=== PATIENT | female | born 1955 | race Caucasian/White ===

== ENCOUNTER 2022-01-15 16:47 | Emergency (ER) | payer MEDICARE, BC, SELFPAY ==
--- NOTE | 2022-01-15 16:59 | ED.SKABFB ---
HPI - Skin/Abscess/Foreign Bdy General Chief complaint: Skin/Abscess/Foreign Body Stated complaint: Swollen Finger Time Seen by Provider: 01/15/22 16:59 Source: patient Mode of arrival: ambulatory Limitations: no limitations History of Present Illness HPI narrative: 66 y/o female presented for c/o right index finger swelling today. States she woke with the swollen finger and denies injury, repetitive use or insect involvement. Endorses decreased ROM and tenderness, denies itching, drainage, or open wounds. She was at the hospital for her mother's surgery today and did not take anything [employer]. Pt is right hand dominant. MD complaint: rash Related Data Home Medications Medication Instructions Recorded Confirmed aspirin 81 mg tablet,delayed 81 mg PO DAILY 06/30/19 01/15/22 release (Adult Low Dose Aspirin) multivitamin (Daily Multi-Vitamin 1 tablet PO DAILY 06/30/19 01/15/22 tablet) omega-3 fatty acids 1,000 mg 1,000 mg PO DAILY 06/30/19 01/15/22 capsule (Fish Oil Concentrate) cholecalciferol (vitamin D3) 50 4,000 unit PO DAILY 06/15/20 01/15/22 mcg (2,000 unit) tablet vit C 250 mg-E 90 mg-zinc 40 1 tablet PO QAM AND QPM 07/04/21 01/15/22 mg-copper 1 [id number] chew tablet (PreserVision AREDS-2) Allergies Allergy/AdvReac Type Severity Reaction Status Date / Time iodine Allergy Unknown RASH Verified 01/04/22 14:30 Penicillins Allergy Unknown Unknown Verified 01/04/22 14:30 povidone-iodine Allergy Unknown RASH Verified 01/04/22 14:30 Review of Systems Review of Systems: CONSTITUTIONAL: Denies body aches, fever, chills, or sweats. EYES: Denies visual changes, redness, or discharge. ENT: Denies rhinorrhea, congestion, sore throat, or otalgia. CARDIOVASCULAR: Denies chest pain, palpitations, or edema. RESPIRATORY: Denies cough or dyspnea. GASTROINTESTINAL: Denies abdominal pain, nausea, vomiting, or diarrhea. GENITOURINARY: Denies dysuria or hematuria. SKIN: denies rash, itching, wounds. MUSCULOSKELETAL:reports right finger swelling NEUROLOGIC: Denies headache, numbness, tingling, or weakness. PSYCH: Denies depression or anxiety. [facility] Past Medical History Medical History Endometrial cancer Essential (primary) hypertension Hyperlipidemia, unspecified Hypertension Personal history of malignant neoplasm of other parts of uterus Post-menopausal Screening for colon cancer Screening for thyroid disorder Screening mammogram, encounter for Vitamin D deficiency, unspecified Surgical History Surgical History Bone marrow donor H/O total hysterectomy History of plastic surgery face S/P knee surgery Family History Family History Mother Hypertension Sibling Hypertension Family history of malignant neoplasm, Onset Age: 32 Patient's sister is in good health Father Carcinoma of colon, Onset Age: 72 Family history of diabetes mellitus in first degree relative Family history of coronary artery disease Patient's father is Grandparent Family history of coronary artery disease Diabetes mellitus Social History Social History Smoking status: Never smoker Second hand tobacco smoke exposure: No Alcohol intake: never Substance use: never Substance use type: does not use Comments At time of signature, I have reviewed and agree with nursing past medical, surgical, social and family history unless otherwise noted. Please see nursing chart for further information. There is no relevant family history pertinent to the presenting complaint Exam Narrative: GENERAL: Well-appearing EYES: conjunctivae clear, and EOMI. ENT: Mucous membranes moist. Oropharynx without edema, erythema or lesions. CHEST: Clear to auscultation. No respiratory distress. HEART
[2022-01-15 17:00] VITALS: BP 154/84; PULSE 89; RESP 18; TEMP 36.6; O2SAT 100
[2022-01-15] MEDS: methylPREDNISolone ACETATE 80 MG/ML VIAL IM (17:14)
== END 2022-01-15 17:49 | disposition home or self-care (01) ==
PROVIDERS: Emergency Provider Nurse Practitioner Family; PCP Internal Medicine
DX: M25.441 Effusion, right hand (principal); I10 Essential (primary) hypertension; E78.5 Hyperlipidemia, unspecified; E55.9 Vitamin D deficiency, unspecified; Z85.42 Personal history of malignant neoplasm of other parts of uterus; Z90.710 Acquired absence of both cervix and uterus; Z79.82 Long term (current) use of aspirin
CPT/HCPCS: 96372; 99213; G0463; J1040

== ENCOUNTER 2022-10-09 13:50 | Outpatient (CLI) | payer MEDICARE, BC, SELFPAY ==
--- NOTE | ~2022-10-09 | DEXA_ITS ---
Bone Density Report Name: ALEJO GIVENS Age: 67 Sex: Female Ethnicity: White Date of : 1955 Indication: postmenopausal; screening for osteoporosis; cancer; hysterectomy; Referring Provider: KAN LOPEZ Study: Bone densitometry was performed. Exam Date: October 09, 2022 Accession number: [id number] Bone Density: Region BMD T-score Z-score Classification AP Spine(L1-L4) 1.079 0.3 2.1 Normal Femoral Neck (Left) 0.874 0.2 1.8 Normal Total Hip (Left) 0.941 0.0 1.3 Normal Femoral Neck (Right) 0.818 -0.3 1.3 Normal Total Hip (Right) 0.879 -0.5 0.8 Normal Total Hip Mean 0.910 -0.3 1.1 Normal World Health Organization criteria for BMD impression classify patients as: Normal (T-score at or above -1.0), Osteopenia (T-score between -1.0 and -2.5), or Osteoporosis (T-score at or below -2.5). 10-year Fracture Risk: FRAX not reported because: All T-scores for Spine Total, Hip Total, Femoral Neck at or above -1.0 Previous Exams: Region Exam Age BMD T-score BMD Change BMD Change Date g/cm2 vs Baseline vs Previous AP Spine (L1-L4) 10/09/2022 67 1.079 0.3 -0.024 (-2.2%) 0.014 (1.3%) 07/07/2019 63 1.065 0.2 -0.038 (-3.5%) -0.038 (-3.5%) 07/04/2017 61 1.103 0.5 Total Hip(Left) 10/09/2022 67 0.941 0.0 -0.013 (-1.4%) -0.054 (-5.4%) 07/07/2019 63 0.994 0.4 0.041 (4.2%)* 0.041 (4.2%)* 07/04/2017 61 0.954 0.1 Total Hip(Right) 10/09/2022 67 0.879 -0.5 -0.073 (-7.6%) -0.093 (-9.6%) 07/07/2019 63 0.972 0.2 0.020 (2.1%) 0.020 (2.1%) 07/04/2017 61 0.952 0.1 *Denotes significance at 95% confidence level, LSC for AP Spine = 0.022 g/cm2, LSC for Total Hip = 0.027 g/cm2 Clinical Information Provided by Patient: Has used the following medications: Vitamin D, Calcium Has the following medical conditions: Cancer, Hysterectomy Patient maximum height was 65 Menopause Age: 52 Onset of menses at age 11 Number of children 0 Impression: The patient has normal bone mass. The BMD for the Total Hip(Left) decreased, changing by -5.4% since the last DXA exam. The BMD for the Total Hip(Right) decreased, changing by -9.6% since the last DXA exam. Discussion: BONE DENSITY IS ABOVE THE MINIMUM DESIRABLE LEVEL AT ALL SKELETAL SITES TESTED. This patient?s bone mineral density is above the minimum desirable level (T-score -1.0 or better) at all sites measured. The patient should follow a healthful life
== END 2022-10-09 13:51 | disposition home or self-care (01) ==
LOC: ANHIMG 13:51
PROVIDERS: PCP Internal Medicine; Visit Provider Obstetrics & Gynecology
DX: Z78.0 Asymptomatic menopausal state (principal)
CPT/HCPCS: 77080

== ENCOUNTER 2024-03-02 13:09 | Outpatient (CLI) | payer MEDICARE, BC, SELFPAY ==
--- NOTE | ~2024-03-02 | US_ITS ---
EXAMINATION: US soft tissue LE LT DATE: 03/02/2024 13:25 INDICATION: Localized swelling, mass and lump, left lower limb. TECHNIQUE: Multiple grayscale and Doppler ultrasound images of the left lower limb were obtained. COMPARISON: None FINDINGS: In the left calf, there is hyperechoic subcutaneous fat with shadowing, consistent with inf lammation. The tech notes the skin appearance of bruising. There are patent varicose veins. IMPRESSION: 1. Inflammation/bruising of left calf. No abscess. 2. Varicose veins. Reviewed, dictated and finalized at location A.
== END 2024-03-02 13:10 ==
LOC: GOSHIMG 13:10
PROVIDERS: PCP Family Medicine; Visit Provider Family Medicine
DX: R22.42 Localized swelling, mass and lump, left lower limb (principal); I83.92 Asymptomatic varicose veins of left lower extremity
CPT/HCPCS: 76882

== ENCOUNTER 2025-04-13 10:57 | Emergency (ER) | payer MEDICARE, BC, SELFPAY ==
--- NOTE | 2025-04-13 11:03 | ED_ITS ---
HPI - Female Genitourinary General Chief complaint: Urogenital-Female Stated complaint: UTI Time Seen by Provider: 04/13/25 11:01 Source: patient Mode of arrival: ambulatory Limitations: no limitations History of Present Illness HPI Narrative: Patient is a 69-year-old female who presents with dark urine, urgency, frequency and burning since yesterday. Reports seen blood in urine. Denies any fever, chills, nausea, vomiting, diarrhea, suprapubic pain or low back pain. MD elicited complaint: dysuria Related Data Home Medications ?Medication ?Instructions ?Recorded ?Confirmed ?Last Taken ?Type aspirin 81 mg tablet,delayed 81 mg PO DAILY 06/30/19 0 12/28/24 Unknown History release (Adult Low Dose Aspirin) multivitamin (Daily Multi-Vitamin 1 tablet PO DAILY 12/28/24 Unknown History tablet) omega-3 fatty acids 1,000 mg 1,000 mg PO DAILY 9 12/28/24 Unknown History capsule (Fish Oil Concentrate) cholecalciferol (vitamin D3) 50 4,000 unit PO DAILY 12/28/24 Unknown History mcg (2,000 unit) tablet vit C 250 mg-E 90 mg-zinc 40 1 tablet PO QAM AND QPM 1 09/04/20 12/28/24 Unknown History mg-copper 1 [id number] chew tablet (PreserVision AREDS-2) calcium carbonate (Calcium 600) 600 mg PO DAILY 12/28/24 Unknown History Allergies Allergy/AdvReac Type Severity Reaction Status Date / Time iodine Allergy Unknown RASH Verified 04/13/25 11:20 Penicillins Allergy Unknown Unknown Verified 04/13/25 11:20 povidone-iodine Allergy Unknown RASH Verified 04/13/25 11:20 Review of Systems Review of Systems: All systems reviewed & are unremarkable except as noted in HPI and below Constitutional: Constitutional: Denies chills, Denies fever(s), Denies headache(s), Denies malaise and Denies weakness Eyes: Eyes: Denies change in vision, Denies eye discharge and Denies irritation ENT: Denies otalgia, Denies headache(s), Denies nasal congestion, Denies nasal discharge, Denies sinus pain and Denies sore throat Cardiovascular: Cardiovascular: Denies chest pain, Denies edema, Denies palpitations and Denies dyspnea Respiratory: Respiratory: Denies cough and Denies dyspnea Gastrointestinal: Gastrointestinal: Denies abdominal pain, Denies diarrhea, Denies nausea and Denies vomiting Genitourinary: Genitourinary: Reports hematuria, Reports nocturia, Reports dysuria, Denies flank pain and Reports urinary urgency Musculoskeletal: Musculoskeletal: Denies back pain and Denies numbness Integumentary/Breasts: Skin/Breast: Denies pruritus and Denies rash Neurologic: Denies headache(s), Denies numbness and Denies weakness Psychiatric: Psychiatric: Reports no additional psychiatric complaints Endocrine: Endocrine: Denies palpitations PMFSH Past Medical History Medical History Screening for colon cancer Screening for thyroid disorder Essential (primary) hypertension Hyperlipidemia, unspecified Personal history of malignant neoplasm of other parts of uterus Post-menopausal Screening mammogram, encounter for Vitamin D deficiency, unspecified Hypertension Endometrial cancer Surgical History Surgical History S/P knee surgery History of plastic surgery face Bone marrow donor H/O total hysterectomy Family History Family History Mother Hypertension Sibling Hypertension Family history of malignant neoplasm, Onset Age: 32 Patient's sister is in good health Father Carcinoma of colon, Onset Age: 72 Family history of diabetes mellitus in first degree relative Family history of coronary artery disease Patient's father is Grandparent Family history of coronary artery disease Diabetes mellitus Social History Social History Smoking status: Never smoker Second hand tobacco smoke exposure: No Alcohol intake: current Alcohol use details: infrequent per patient Substance use: never Substance use type: does not use Lack of Transportation: No Lack of Food: Never True Current Housing: I Have Housing Concerned About Future Housing: No Difficulty Paying Gas/Electric Bills: No Difficulty Paying for Meds: No Currently Unemployed: No Education: Bachelor's Degree Difficulty w/ Childcare or Family Care: No Living arrangements: with family Occupation/Education: retired Gender identity (if verbalized by the patient): Female Sexual Orientation (if Verbalized by the Patient): Straight or Heterosexual Spiritual care concerns: No Comments At time of signature, agree with nursing past medical, surgical, social and family history. There is no relevant family history pertinent to the presenting complaint. Exam Const: General: cooperative, healthy appearing, comfortable, no acute distress and well nourished Nutritional Appearance: well nourished Orientation/consciousness: patient oriented x3 HENMT: Head: normocephalic and atraumatic Ears: external ears normal Face/Nose/Sinus: Normal external nose present, Normal nares present and normal facial exam Face and sinus: normal facial exam Eyes: General: appearance normal, both eyes and all related structures Pupils: Equal, round and reactive pupils present EOM: EOMs intact bilaterally Neck: Neck: normal visual inspection, full ROM and supple Chest: Chest palpation & inspection: normal inspection of the chest Resp: Effort & Inspection: normal respiratory effort and able to speak in complete sentences Cardio: Rate: regular rate Rhythm: regular rhythm GI: Inspection: normal to inspection GI Palp: No abdominal tenderness and Yes Soft to palpation : General: Yes no CVA tenderness Back/Spine/Pelvis: Back: no CVA tenderness Skin: General skin exam: normal color and no rashes or lesions noted Neuro: General: patient oriented x3 and moves all extremities Cranial nerves: Yes Equal, round and reactive pupils present Extrem: General: normal to inspection and full ROM Psych: Appearance: grossly normal and well kempt Course Course Emergency Course: Patient is aware of diagnosis, understands and agrees to treatment plan. Anticipatory guidance given. Patient agrees to follow-up as directed and is aware of reasons to seek care at the emergency department. Portions of this record may have been created with voice recognition software Level of Care: Express Care Visit Vital Signs Vital signs: Vital Signs Temperature 37.1 C 04/13/25 11:13 Pulse Rate 89 04/13/25 11:13 Respiratory Rate 16 04/13/25 11:13 Blood Pressure 145/80 H 04/13/25 11:13 Pulse Oximetry 100 04/13/25 11:13 Oxygen Delivery Room Air 04/13/25 11:13 Temperature 37.1 C 04/13/25 11:13 Pulse Rate 89 04/13/25 11:13 Respiratory Rate 16 04/13/25 11:13 Blood Pressure 145/80 H 04/13/25 11:13 Pulse Oximetry 100 04/13/25 11:13 Oxygen Delivery Room Air 04/13/25 11:13 Reviewed MDM - Female Genitourinary MDM Narrative Medical decision making narrative: Exam findings and UA show probable UTI; patient is non-toxic appearing and is in no distress. No CMT, adnexal tenderness, or evidence of pelvic etiology. Patient is appropriate for outpatient treatment and follow-up. Differential Diagnosis Differential diagnosis: Likely urinary tract infection, bacterial vaginosis, trichomoniasis, cervicitis, vaginitis and cystitis Medical Records Attestation: I reviewed the patient's medical records. Lab Data Attestation: I reviewed the patient's lab results. Labs: Lab Results 04/13/25 Range/Units 11:22 POC Urine Color Yellow POC Urine Clarity Cloudy POC Urine pH 7.5 POC Ur Specif [employer] 1.015 POC Urine Protein Negative (Negative) POC Ur Glucose (UA) Negative (Negative) POC Urine Ketones Negative (Negative) POC Urine Blood 3+ (Negative) POC Urine Nitrite Negative (Negative) POC Urine Bilirubin Negative (Negative) POC Urine Urobilinogen 0.2 POC U Leukocyte Esteras Trace (Negative) Discharge Plan Discharge Clinical Impression: Urinary tract infection Qualifiers: Urinary tract infection type: acute cystitis Patient Disposition: Home Condition: Stable Instructions: Urinary Tract Infection in Women (ED) Additional Instructions: We will send a urine culture to the lab, based on your symptoms and urine dip we will start treatment today. If culture comes back and bacteria is not susceptible to antibiotic, your prescription may change. Your symptoms should improve within a day of starting antibiotics, but you should finish all the antibiotic pills you get. Otherwise your infection might come back Continue with increased water intake. Take Tylenol or ibuprofen as needed for pain or fever. Follow-up with primary care provider for urine recheck or see ER visit if condition worsens with high fever, nausea, vomiting, severe back pain Your blood pressure was elevated above 120/80 today at Urgent Care. This puts you above the threshold for follow up visit with a primary care provider. High blood pressure does not usually cause any symptoms, however it may lead to kidney failure, stroke, heart disease just to name a few if untreated . Many people are anxious when seeing a provider or nurse. As a result, you are not diagnosed with hypertension at this time unless your blood pressure is persisten tly high at two office visits at least one week apart. Some things that can help lower blood pressure are lifestyle modifications, such as light exercise, decreased salt in diet, and weight loss. It is important to follow up with a PCP about this within 1 week. Patient Language: Lao Prescriptions: New cephalexin 500 mg capsule 500 mg PO Q12H 5 Days Qty: 10 0RF No Action cholecalciferol (vitamin D3) 50 mcg (2,000 unit) tablet 4,000 unit PO DAILY calcium carbonate [Calcium 600] 600 mg calcium (1,500 mg) tablet 600 mg PO DAILY aspirin [Adult Low Dose Aspirin] 81 mg tablet,delayed release (DR/EC) 81 mg PO DAILY omega-3 fatty acids [Fish Oil Concentrate] 1,000 mg capsule 1,000 mg PO DAILY multivitamin [Daily Multi-Vitamin] Tablet 1 tablet PO DAILY PreserVision AREDS-2 250-90-40-1 mg tablet,chewable 1 tablet PO QAM AND QPM benazepril-hydrochlorothiazide 10-12.5 mg tablet See Rx Instructions .ROUTE .COMPLEX Qty: 90 1RF Dose Instruction: TAKE 1 TABLET BY MOUTH DAILY Rx Instructions: TAKE 1 TABLET BY MOUTH DAILY Follow-up/Referrals: Blane Wheat MD [Primary Care Provider, Family Practice] - 3 Days Time of Disposition: 11:49
[2025-04-13 11:13] VITALS: BP 145/80; PULSE 89; RESP 16; TEMP 37.1; O2SAT 100
[2025-04-13 11:29] LABS: EDUAAPPEAR Cloudy; EDUABILI Negative (Negative); EDUABLOOD 3+ (Negative); EDUACOLOR1 Yellow; EDUAGLUCOSE Negative (Negative); EDUAKETONE Negative (Negative); EDUALEUKO Trace (Negative); EDUANITRATE Negative (Negative); EDUAPH 7.5; EDUAPROTEIN Negative (Negative); EDUASPGRAVITY 1.015; EDUAUROBILI 0.2
== END 2025-04-13 11:55 | disposition home or self-care (01) ==
PROVIDERS: Emergency Provider Nurse Practitioner Family; PCP Family Medicine
DX: N30.00 Acute cystitis without hematuria (principal); I10 Essential (primary) hypertension; E78.5 Hyperlipidemia, unspecified; E55.9 Vitamin D deficiency, unspecified; Z85.42 Personal history of malignant neoplasm of other parts of uterus; Z90.710 Acquired absence of both cervix and uterus; Z79.82 Long term (current) use of aspirin
CPT/HCPCS: 81003; 87086; 99213; G0463